=== PATIENT | male | born 1960 | race Caucasian/White ===

== ENCOUNTER 2020-05-04 08:48 | Outpatient (CLI) | payer OTHER, SELFPAY ==
--- NOTE | 2020-05-04 | EST_ITS ---
Patient Info Name: Paul García Age: 60 years : 1960 Gender: Male Ht: 71 in Wt: 300 lbs BSA: 2.67 m2 Exam Date: 05/04/2020 9:37 AM Exam Location: [facility] Stress Patient Status: Outpatient Admit Date: 05/04/2020 Staff Ordering Physician: Buddy, Seda Muller MD Attending Provider: Buddy, Seda Muller MD Exercise Technologist: Ivania Borges RDCS Exercise Physician: Kartik Zhao DO Exam Type: CA stress test treadmill Study Info Indications R03.0 - ELEVATED BLOOD PRESSURE A treadmill exercise stress test was performed. Summary 1. 1. Negative Josué exercise stress test for ischemic ST changes by ECG criteria. However, patient achieved only 70% MPHR for age group which significantly reduces sensitivity of the test. 2. 2. Poor functional capacity, achieving 4 METs of workload. 3. 3. Appropriate HR response to exercise. 4. 4. Appropriate HR recovery at 1 minute post exercise. 5. 5. No imaging with stress testing. 6. 6. Patient informed of the above results. Protocol: Josué Stress ECG Details Stage: REST Duration (min): 6 min : 56 sec Speed (mph): 0.0 Grade (%): 0 HR (bpm): 82 SBP (mmHg): 137 DBP (mmHg): 101 METS: --- Stage: STAGE 1 Duration (min): 1 min : 0 sec Speed (mph): 1.7 Grade (%): 10 HR (bpm): 101 SBP (mmHg): 137 DBP (mmHg): 101 METS: --- Stage: STAGE 1 Duration (min): 2 min : 0 sec Speed (mph): 1.7 Grade (%): 10 HR (bpm): 110 SBP (mmHg): 137 DBP (mmHg): 101 METS: --- Stage: STAGE 1 Duration (min): 3 min : 0 sec Speed (mph): 1.7 Grade (%): 10 HR (bpm): 113 SBP (mmHg): 144 DBP (mmHg): 89 METS: --- Stage: STAGE 2 Duration (min): 0 min : 7 sec Speed (mph): 2.5 Grade (%): 12 HR (bpm): 112 SBP (mmHg): 144 DBP (mmHg): 89 METS: --- Stage: RECOVERY Duration (min): 0 min : 52 sec Speed (mph): 0.0 Grade (%): 0 HR (bpm): 109 SBP (mmHg): 151 DBP (mmHg): 90 METS: --- Stage: RECOVERY Duration (min): 1 min : 52 sec Speed (mph): 0.0 Grade (%): 0 HR (bpm): 90 SBP (mmHg): 151 DBP (mmHg): 90 METS: --- Stage: RECOVERY Duration (min): 2 min : 52 sec Speed (mph): 0.0 Grade (%): 0 HR (bpm): 92 SBP (mmHg): 151 DBP (mmHg): 90 METS: --- Stage: RECOVERY Duration (min): 3 min : 24 sec Speed (mph): 0.0 Grade (%): 0 HR (bpm): 90 SBP (mmHg): 154 DBP (mmHg): 106 METS: --- Peak HR: 113 bpm Rest Sys BP: 137 mmHg Peak Sys BP: 154 mmHg Max Pred HR: 160 bpm % Max Pred HR: 71 % Target HR: 136 bpm Max RPP: 17,402 bpm*mmHg Dale Score: 1 Termination Reason: Shortness of breath, Leg fatigue Cardiac Symptoms: Shortness of breath Max ST Seg Deviation: -0.40 mm Total Time: 3 min : 7 sec Rest Knapp BP: 101 mmHg Peak Knapp BP: 106 mmHg Angina Score: None Total METS: 4.7 Resting ECG Sinus rhythm. Stress ECG No ST changes. Arrhythmias None. Report Signatures Electronically signed by Kartik
== END 2020-05-04 08:49 | disposition home or self-care (01) ==
LOC: ANHCARD 08:50
PROVIDERS: PCP Family Medicine; Visit Provider Family Medicine
DX: R03.0 Elevated blood-pressure reading, without diagnosis of hypertension (principal)
CPT/HCPCS: 93017

== ENCOUNTER 2020-08-07 07:05 | Outpatient (NON) | payer OTHER, SELFPAY ==
[2020-08-08 00:20] LABS: SARS-CoV-2 RNA PCR Negative
== END 2020-08-07 07:06 ==
LOC: ANHCOVIDDT 07:27
PROVIDERS: PCP Family Medicine; Visit Provider Family Medicine
DX: Z20.828 Contact with and (suspected) exposure to other viral communicable diseases (principal); R09.89 Other specified symptoms and signs involving the circulatory and respiratory systems
CPT/HCPCS: 87635; C9803; U0003

== ENCOUNTER 2020-10-23 11:53 | Emergency (ER) | payer OTHER, SELFPAY ==
--- NOTE | ~2020-10-23 | CT_ITS ---
EXAMINATION: CT brain wo con DATE: 10/23/2020 13:05 INDICATION: Headache, blurred vision. Hypertension. History of cerebrovascular accident. TECHNIQUE: Computed tomography (CT) of the head was performed without intravenous contrast. The mA wa s adjusted according to patient size. Iterative reconstruction technique was employed. Exam dose: 60 5.33 mGy-cm total exam DLP. COMPARISON: None FINDINGS: No intracranial mass lesion or hemorrhage or cerebrovascular accident is evident. Minimal b michael ganglia calcification. Normal ventricular size. No subdural or epidural hematoma. No fracture or bone destruction of the cranial vault. Mastoid air cells and included paranasal sinuse s are normally developed and aerated. IMPRESSION: No significant abnormality Reviewed, dictated and finalized at [facility]. Reviewed, dictated and finalized at [facility]. CHIEF DEPUTY IMPRESSION: No significant abnormality
[2020-10-23 12:02] VITALS: BP 127/84; PULSE 104; RESP 20; TEMP 36.1; O2SAT 98
[2020-10-23 12:15] LABS: Glucose Point of Care 417 (65-105)
[2020-10-23 12:41] LABS: Alveolar/Arterial O2 Gradient 40.3 mmHg; Base Excess ABG -2.3 mEq/l (+/-2.0); Carboxyhemoglobin 1.3 % THb (0-2.0); Device ROOM AIR; Fractional Inspired Oxygen 21 %; HCO3 ABG 21.7 mEq/l (22.0-26.0); Methemoglobin ABG 0.2 %THb (0-1.5); Modified Allen's Test Pass; Oxygen Content ABG 19.5 %vol (16.0-22.0); Oxygen Saturation ABG 93.7 % (95.0-100.0); Oxyhemoglobin 91.3 % THb (90.0-100.0); PCO2 ABG 35.2 mmHg (35.0-45.0); PO2 ABG 67.3 mmHg (80.0-100.0); Reduced Hemoglobin 7.2 %THb (0-5.0); Site Drawn LEFT RADIAL; Total Hemoglobin 15.2 g/dL (12.0-18.0); pH ABG 7.407 (7.350-7.450)
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
[2020-10-23] MEDS: SODIUM CHLORIDE 0.9% IV 1,000 ML 999 ML IV CONT ×2 (12:49→14:59)
[2020-10-23] MEDS: INSULIN HUMAN REGULAR (*BKC) 100 UNITS/ML 13 UNITS IV PUSH (12:49)
[2020-10-23 12:50] LABS: Basophils Absolute Auto 0.1 K/mm3 (0.0-0.1); Eosinophils Absolute Auto 0.1 K/mm3 (0-0.3); Eosinophils Percent Auto 1.7 % (0-4.4); Hematocrit 41.9 % (42.0-52.0); Hemoglobin 14.8 g/dL (14.0-18.0); Immature Granulocyte Absolute 0.05 K/mm3 (0.00-0.031); Lymphocytes Absolute Auto 1.38 K/mm3 (0.9-3.2); Lymphocytes Percent Auto 26.6 % (18.3-44.2); Mean Corpuscular HGB Conc 35.3 g/dl (32-36); Mean Corpuscular Hemoglobin 29.5 pg (26-34); Mean Corpuscular Volume 83.6 fl (80-100); Mean Platelet Volume 9.7 fl (7.4-10.4); Monocytes Absolute Auto 0.4 K/mm3 (0.1-0.6); Monocytes Percent Auto 7.1 % (2.6-8.5); Neutrophils Absolute Auto 3.3 K/mm3 (1.3-6.7); Neutrophils Percent Auto 62.6 % (45.5-73.1); Platelet Count Result 178 k/mm3 (150-375); Red Blood Count 5.01 M/mm3 (4.6-6.20); Red Cell Distribution Width 14.1 % (11.5-14.5); White Blood Count 5.2 K/mm3 (4.5-10.0)
[2020-10-23 13:02] LABS: Alanine Aminotransferase 47 U/L (4-50); Albumin Level 4.4 g/dL (3.5-5.1); Alkaline Phosphatase 59 U/L (38-126); Anion Gap 10 mmol/L (8-16); Aspartate Amino Transferase 41 U/L (17-59); Bilirubin,Total 1.1 mg/dL (0.2-1.3); Blood Urea Nitrogen 29 mg/dL (9-20); Calcium 9.5 mg/dL (8.4-10.2); Carbon Dioxide 22 mmol/L (22-30); Chloride 102 mmol/L (98-107); Estimated CRCL calculation 64 ml/min; Estimated Glomerular Filt Rate 48; Glucose 439 mg/dL (75-110); Magnesium 1.9 mg/dL (1.6-2.3); Phosphorus 3.5 mg/dL (2.5-4.5); Potassium 4.3 mmol/L (3.4-5.0); Sodium 134 mmol/L (137-145)
[2020-10-23 13:05] LABS: Beta-Hydroxybutyrate/Acetoacetate 0.18 mmol/L (0.02-0.27)
[2020-10-23 13:14] LABS: Glucose Point of Care 378 (65-105)
[2020-10-23 14:55] VITALS: BP 148/78; PULSE 85; O2SAT 87
[2020-10-23 15:02] LABS: Glucose Point of Care 282 (65-105)
[2020-10-23 15:59] VITALS: BP 137/82; PULSE 78; RESP 20; O2SAT 99
== END 2020-10-23 16:01 | disposition home or self-care (01) ==
PROVIDERS: Emergency Provider Emergency Medicine; PCP Family Medicine
DX: R73.9 Hyperglycemia, unspecified (principal); I10 Essential (primary) hypertension; E07.9 Disorder of thyroid, unspecified; N28.9 Disorder of kidney and ureter, unspecified; K71.6 Toxic liver disease with hepatitis, not elsewhere classified; E78.5 Hyperlipidemia, unspecified
CPT/HCPCS: 36415; 36600; 70450; 80053; 82010; 82375; 82805; 82948; 83050; 83735; 84100; 85025; 96361; 96374; 99284; J1815; J7030

== ENCOUNTER 2021-10-27 15:15 | Emergency (ER) | payer OTHER, SELFPAY ==
--- NOTE | ~2021-10-27 | XR_ITS ---
EXAMINATION: XR cervical spine 4-5V EXAM DATE: 10/27/2021 16:30 INDICATION: neck pain from physical therapy TECHNIQUE: Cervical spine frontal, lateral, lateral swimmers, and open-mouth odontoid projections. There is no prior study for comparison. FINDINGS: There is mild reversal of the normal cervical lordosis which may be positional or spasm. Th ere is no evidence of acute cervical fracture. The odontoid process is intact. Pre-dens space is no rmal. Prevertebral soft tissue is normal. There are no soft tissue abnormalities identified. There is mild to moderate disc disease at C5-6, mild at C3-4 and C6-7. The vertebral bodies are aligned. Overall mild to moderate cervical arthropathy. IMPRESSION: 1. Mild to moderate cervical spondylosis. 2. Mild reversal of cervical lordosis. Reviewed, dictated and finalized at location . [facility]
[2021-10-27 15:28] VITALS: BP 151/96; PULSE 98; RESP 16; TEMP 37.2; O2SAT 99
[2021-10-27 15:30] VITALS: BP 151/96; PULSE 98; RESP 16; TEMP 37.2; O2SAT 99
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
== END 2021-10-27 16:32 | disposition left against medical advice (07) ==
PROVIDERS: Emergency Provider Nurse Practitioner Family
DX: M54.2 Cervicalgia (principal); R01.1 Cardiac murmur, unspecified; E03.9 Hypothyroidism, unspecified; K21.9 Gastro-esophageal reflux disease without esophagitis; E78.00 Pure hypercholesterolemia, unspecified; I11.0 Hypertensive heart disease with heart failure; I50.9 Heart failure, unspecified; I48.91 Unspecified atrial fibrillation; Z86.73 Personal history of transient ischemic attack (TIA), and cerebral infarction without residual deficits
CPT/HCPCS: 72050; 99213; G0463

== ENCOUNTER 2023-11-14 13:30 | Outpatient (CLI) | payer OTHER, SELFPAY ==
--- NOTE | 2023-11-14 14:00 | NEURO_ITS ---
Impression: # Complains of pain and numbness in lower extremities. # Motor/Sensory neuropathy of axonal type. # Needle/EMG exam mildly abnormal. # Clinical correlation recommended. Nerve Conduction Studies Anti Sensory Summary Table Stim Site NR Peak (ms) P-T Amp (?V) Site1 Site2 Delta-P (ms) Dist (cm) Haider (m/s) Left Saphenous Anti Sensory (Ant Med Mall) NO RESPONSE 14cm NR 14cm Ant Med Mall 0.0 Right Saphenous Anti Sensory (Ant Med Mall) 14cm 4.3 13.9 14cm Ant Med Mall 4.3 0.0 Left Sup Fibular Anti Sensory (Ant Lat Mall) NO RESPONSE 14 cm NR 14 cm Ant Lat Mall 16.0 Right Sup Fibular Anti Sensory (Ant Lat Mall) NO RESPONSE 14 cm NR 14 cm Ant Lat Mall 16.0 Left Sural Anti Sensory (Lat Mall) Calf 4.0 10.9 Calf Lat Mall 4.0 16.0 40 Right Sural Anti Sensory (Lat Mall) NO RESPONSE Calf NR Calf Lat Mall 16.0 Motor Summary Table Stim Site NR Onset (ms) O-P Amp (mV) Site1 Site2 Delta-0 (ms) Dist (cm) Haider (m/s) Left Peroneal Motor (Vastus Med) Ankle 4.1 3.3 Popit Ankle 10.4 45.0 43 Popit 14.5 2.3 Right Peroneal Motor (Vastus Med) Ankle 4.1 3.8 Popit Ankle 10.6 43.0 41 Popit 14.7 2.4 Left Tibial Motor (Abd Armas Brev) Ankle 4.5 3.4 Knee Ankle 10.4 45.0 43 Knee 14.9 2.5 Right Tibial Motor (Abd Armas Brev) Ankle 4.4 1.8 Knee Ankle 10.7 42.0 39 Knee 15.1 1.4 F Wave Studies NR F-Lat (ms) L-R F-Lat (ms) Left Peroneal (Mrkrs) (EDB) 56.57 1.99 Right Peroneal (Mrkrs) (EDB) 58.56 1.99 Left Tibial (Mrkrs) (Abd Hallucis) 56.42 1.28 Right Tibial (Mrkrs) (Abd Hallucis) 57.70 1.28 EMG Side Muscle Nerve Root Ins Act Fibs Amp Dur Recrt Comment Right AntTibialis Dp Br Fibular L4-5 Nml Nml Nml Nml Nml Right Gastroc Tibial S1-2 Nml Nml Nml Nml Nml Right Fibularis Long Sup Br Fibular L5-S1 Nml Nml Nml Nml Nml Right Flex Dig Long Tibial L5-S2 Nml Nml Nml >12ms +1 Right Ext Dig Brev Dp Br Fibular L5, S1 Nml Nml Nml >12ms +1 Left AntTibialis Dp Br Fibular L4-5 Nml Nml Nml Nml Nml Left Gastroc Tibial S1-2 Nml Nml Nml Nml Nml Left Fibularis Long Sup Br Fibular L5-S1 Nml Nml Nml Nml Nml Left Flex Dig Long Tibial L5-S2 Nml Nml Nml >12ms +1 Left Ext Dig Brev Dp Br Fibular L5, S1 Nml Nml Nml >12ms +1 MTDD
== END 2023-11-14 13:31 | disposition home or self-care (01) ==
DX: G62.89 Other specified polyneuropathies (principal); R94.131 Abnormal electromyogram [EMG]
CPT/HCPCS: 95886; 95911